=== PATIENT | male | born 1955 | race Caucasian/White ===

== ENCOUNTER → 2017-07-17 | Outpatient (CLI) | payer OTHER | END | disposition disaster alternative care site (69) | LOC: GRAD 07:38 | DX: S46.111A Strain of muscle, fascia and tendon of long head of biceps, right arm, initial encounter (principal); M77.8 Other enthesopathies, not elsewhere classified; M25.411 Effusion, right shoulder; M75.41 Impingement syndrome of right shoulder; M65.811 Other synovitis and tenosynovitis, right shoulder; R93.7 Abnormal findings on diagnostic imaging of other parts of musculoskeletal system ==